=== PATIENT | male | born 1935 | race Caucasian/White ===

== ENCOUNTER → 2016-05-05 | Outpatient (CLI) | payer OTHER ==
--- NOTE | 2016-05-05 17:05 | DX ---
Lumbar Spine, Two Views 1500 hours Indication: Pain. Evaluate sacroiliac joints. Comparison: None Technique: Upright AP and lateral views. Findings: The lumbar spine has minimal dextrocurvature apex at L2 and 3 mm anterolisthesis of L3 on L4. No compression fracture or pars defect. Moderate to severe degenerative disk disease and facet ar thropathy are present at L4-L5 and L5-S1. The remainder the disk heights are relatively well preserve d. A sclerotic density overlying the iliac wings on the lateral view is not included in the field-of- view on the AP view and may represent a bone island in one of the iliac wings. Amorphous sclerosis is present along the iliac side of bilateral sacroiliac joints. Minimal productive arthropathy is prese nt at the pubic symphysis. Impression: 1. Moderate to severe degenerative disk and facet arthropathy at L4-L5 and L5-S1 levels. 2. No compression fracture. 3. Possible sacroiliitis. If erosive sacroiliitis is suspected, recommend dedicated sacroiliac views to optimally evaluate the joints.
== END ==
LOC: FIMAGING 14:55
PROVIDERS: ATTEND Family Medicine
DX: M51.36 Other intervertebral disc degeneration, lumbar region (principal); M51.37 Other intervertebral disc degeneration, lumbosacral region; M46.96 Unspecified inflammatory spondylopathy, lumbar region; M46.97 Unspecified inflammatory spondylopathy, lumbosacral region

== ENCOUNTER 2018-06-01 09:19 | Inpatient (IN) | payer OTHER, MEDICARE ==
--- NOTE | 2018-05-31 17:23 | GHP ---
[f rep st] PREOP HISTORY AND PHYSICAL DATE OF ADMISSION: 06/01/2018 ADMISSION DIAGNOSIS: BPH with urinary retention. HISTORY OF PRESENT ILLNESS: This is an 82-year-old gentleman who has been referred by Dr. Danny lombardo of urinary retention, and he has had a quality of life score to being mostly satisfied initially , but he had an AUA severity score of 25 as of 06/02/2017. He had multiple episodes of urinary reten tion, with catheter in and out and has been able to void. He had a PSA in the past of 6.1. He had a previous benign biopsy in 2004 and prostate volume as of 07/15/2017, was 95 g. I reviewed that ultr asound. It shows he had an intravesical lobe of the prostate with obstruction, and he has some bladd er incrustations or stone noted in the parenchyma of the prostate. At the present time, he has elect ed to undergo TUR of the prostate, and he is admitted for the above procedure. MEDICATIONS: On admission Asacol, folic acid. ALLERGIES: Penicillin. PAST SURGICAL HISTORY: Hernia, knee, cataract surgery. PAST MEDICAL HISTORY: Positive for rheumatoid arthritis, Crohn disease. REVIEW OF SYSTEMS: Negative cardiac, respiratory, GI, and endocrine. PHYSICAL EXAMINATION: VITAL SIGNS: Stable. CHEST: Clear. HEART: Regular rate and rhythm. ABDOM EN: Normal. No organomegaly, rebound, or guarding. LOWER EXTREMITIES: Normal at the present time. ASSESSMENT AND PLAN: He has had significant urinary obstruction, and cystoscopy previously had noted +4 trabeculation of the bladder and a large intravesical lobe of the prostate. At the present time, he is admitted for the transurethral resection of prostate. He did have an opportunity to discuss t he indications and complications associated with this procedure, and he is admitted for the transuret hral resection of prostate. /[id number]/MODL
--- NOTE | 2018-06-01 07:42 | PDHPUP ---
History & Physical Update H&P update statement: This history and physical update is based on an assessment of the patient which was completed after admission or registration (within 24 hours), but prior to the surgery/procedure. H&P update: H&P reviewed & patient examined, no change in patient's condition since H&P completed
[2018-06-01] MEDS ORDERED: ceFAZolin 2 GM/DEXTROSE 100 ML IV ONE (12:30)
[2018-06-01] MEDS ORDERED: LR 1,000 ML IV ONE (12:30)
[2018-06-01] MEDS ORDERED: MIDAZOLAM 2 MG/2 ML VIAL IVP ONE (13:19)
--- NOTE | 2018-06-01 13:19 | PDANEPAE ---
ANE History of Present Illness here for TURP ANE Past Medical History - Cardiovascular History Hx Hypertension: No Hx Arrhythmias: No Hx Chest Pain: No Hx Coronary Artery / Peripheral Vascular Disease: No Hx CHF / Valvular Disease: No Hx Palpitations: No - Pulmonary History Hx COPD: No Hx Asthma/Reactive Airway Disease: No Hx Recent Upper Respiratory Infection: No Hx Oxygen in Use at Home: No Hx Sleep Apnea: No Sleep Apnea Screening Result - Last Documented: Negative - Neurologic History Hx Cerebrovascular Accident: No Hx Seizures: No Hx Dementia: No - Endocrine History Hx Diabetes: No - Renal History Hx Renal Disorders: No - Liver History Hx Hepatic Disorders: Yes Hepatic History Comment: primary sclerosing cholangitis - Neurological & Psychiatric Hx Hx Neurological and Psychiatric Disorders: No Neurological / Psychiatric History Comment: clinical depression early in life, nothing recently - Cancer History Hx Cancer: No - Congenital Disorder History Hx Congenital Disorders: Yes Congenital History Comment: depression - GI History Hx Gastrointestinal Disorders: Yes Gastrointestinal History Comment: crohns last episode 1994 - Other Health History Other Health History: none - Chronic Pain History Chronic Pain: No - Surgical History Prior Surgeries: colonoscopy. none in last 5 yrs. hernia 2011. knee scope 2008 ANE Review of Systems Review of systems is: negative Review of Systems: - Exercise capacity Exercise capacity: >=4 METS METS (RN): 4 METS ANE Patient History - Allergies Allergies/Adverse Reactions: Penicillins Allergy (Verified 05/26/18 17:17) Rash - Home Medications Home Medications: C/E/Zn/Cu/OM3/DHA/EPA/LUT/ZEAX [Preservision Areds 2 Softgel] 1 each PO BIDMEAL 05/12/15 [Last Taken 1 Week Ago ~05/25/18] Folic Acid [Folic Acid 1 MG (*)] 1 mg PO DAILY 05/12/15 [Last Taken 06/01/18] Mesalamine [Apriso 0.375 gm] 1.5 gm PO DAILY 05/12/15 [Last Taken 05/31/18] Ibuprofen [Motrin (*)] 200 mg PO DAILY PRN 05/18/18 [Last Taken 1 Week Ago ~] - NPO status NPO Status: no food or drink >8 hours NPO Since - Liquids (Date): 06/01/18 NPO Since - Liquids (Time): 10:30 NPO Since - Solids (Date): 05/31/18 NPO Since - Solids (Time): 22:00 - Smoking Hx Smoking Status: Never smoked - Family Anes Hx Family Hx Anesthesia Complications: none ANE Labs/Vital Signs - Vital Signs Blood Pressure: 135/84 Heart Rate: 62 Respiratory Rate: 16 O2 Sat (%): 98 Height: 175.26 cm Weight: 70.307 kg ANE Physical Exam - Airway Neck exam: FROM Mallampati Score: Class 1 - Pulmonary Pulmonary: no respiratory distress - Cardiovascular Cardiovascular: regular rate and rhythym - ASA Status ASA Status: II ANE Anesthesia Plan Anesthesia Plan: GA w LMA
[2018-06-01] MEDS ORDERED: fentaNYL 100 MCG/2 ML INJ ONE ×2 (13:27→14:41)
[2018-06-01] MEDS ORDERED: PROPOFOL/EMULSION 500 MG/50 ML BOTTLE IV ONE (13:28)
[2018-06-01] MEDS ORDERED: LIDOCAINE 2% JELLY 20 ML (UROJECT) ONE (14:39)
--- NOTE | 2018-06-01 14:51 | POSTOPPROG ---
Post Op Note Date of Operation: 06/01/18 (dictated ) Surgeon: León Weston Anesthesiologist: jim Anesthesia: GET(General Endotracheal) Pre-op Diagnosis: BPH Procedure: turp Inf/Abcess present in the surg proc area at time of surgery?: No EBL: 50-100 Drains: Other Specimen(s): specimen sent
[2018-06-01] MEDS ORDERED: HYDROCODONE/APAP 5/325 TAB PO PRN (14:52)
[2018-06-01] MEDS ORDERED: ONDANSETRON DISINTEGRATING 4 MG TAB PO PRN (14:56)
[2018-06-01] MEDS ORDERED: ZOLPIDEM TARTRATE 5 MG TAB PO PRN (14:56)
[2018-06-01] MEDS ORDERED: oxyCODONE IR 5 MG TAB PO PRN (14:56)
[2018-06-01] MEDS ORDERED: ONDANSETRON 4 MG/2 ML VIAL IVP PRN (14:56)
[2018-06-01] MEDS ORDERED: ACETAMINOPHEN 325 MG TAB PO PRN (14:56)
[2018-06-01] MEDS ORDERED: D5W LR 1,000 ML IV SCH (15:00)
--- NOTE | 2018-06-01 15:03 | POSTANESTH ---
Post Anesthetic Evaluation Cardiovascular Status: Normal, Stable Respiratory Status: Normal, Stable Level of Consciousness/Mental Status: Can Participate in Eval Pain Control: Adequate, Prn Tx Ordered Nausea/Vomiting Control: Adequate, Prn Tx Ordered Complications Possibly Related to Anesthesia: None Noted
--- NOTE | 2018-06-01 15:12 | GOP ---
[f rep st] OPERATIVE REPORT DATE OF OPERATION: 06/01/2018 SURGEON: León Weston MD ANESTHESIA: General. ANESTHESIOLOGIST: Pablo Lane MD PREOPERATIVE DIAGNOSIS: Benign prostatic hypertrophy with urinary obstruction and retention. POSTOPERATIVE DIAGNOSIS: Benign prostatic hypertrophy with urinary obstruction and retention. PROCEDURE PERFORMED: Transurethral resection of the prostate. FINDINGS: SPECIMENS: Sent to pathology. DESCRIPTION OF PROCEDURE: After undergoing general anesthesia, prepped and draped in normal sterile fashion in dorsal lithotomy position and appropriate time-out, the scope was passed under direct visi on. He had a large intravesical lobe of the prostate and +4 trabeculation of the bladder. No tumors identified in the bladder. At that point, I took down the intravesical lobe and, of interest, with every sweep of the loop he had a large caliber artery that would bleed, so we cauterized those. I re sected, and basically I did a channel TUR of the prostate because of the hypervascularity, and some o f the arteries were of a nature that even electrocautery with the loop would not stop their bleeding, so I used a button to stop the bleeding. At the end of the procedure, Ellik 'd his bladder free of all chips and clots. Visualization revealed no residual chips or clots. Ureteral orifices were pres erved, verumontanum preserved. He had a channel TUR and could visualize no significant hemorrhage or bleeding at that time. The Uro-jet placed in his urethra, Kolb catheter passed over a Mandarin kristi de into the bladder, and the balloon was inflated to greater than 100 mL. Traction placed, irrigated clear. I will inform him and his postoperatively that this may not be as effective as I would like, and may need to go back and do a 2nd procedure. But, at the present time, with the vascularity of his prostate and the arterial supply to it, felt that it may be more harmful than good at this po int to do a more extensive TUR of the prostate. COMPLICATIONS: None. I will contact his to give her an update and then he will be in recovery room shortly. /[id number]/MODL
[2018-06-01] MEDS: OPIUM/BELLADONNA ALKALO SUPP PR PRN ×2 (19:28→21:50)
[2018-06-01] MEDS: IBUPROFEN 600 MG TAB PO PRN (21:50)
[2018-06-02] MEDS: IBUPROFEN 600 MG TAB PO PRN ×2 (04:33→22:27)
[2018-06-02 05:08] LABS: PLATELET COUNT 195 10^3/uL (150-400)
--- NOTE | 2018-06-02 07:01 | SOAPPROG ---
SOAP Progress Note Assessment/Plan: Assessment: BPH loc w urin obs/LUTS Acute POD #1 TURP, doing well, plan for additional night stay Plan: dc barillas in AM, plan DC in am 06/02/18 13:12 Subjective: doing better with less in the barillas balloon Objective: Vital Signs Temp Pulse Resp BP Pulse Ox 36.7 C 79 14 120/68 96 06/02/18 04:27 06/02/18 04:27 06/02/18 04:27 06/02/18 04:27 06/02/18 04:27 Laboratory Results 06/02/18 04:10 06/02/18 04:10 06/01/18 06/02/18 06/03/18 05:59 05:59 05:59 Intake Total 2804 Output Total 1269 Balance 1535 Physical Exam - Physical Exam General Appearance: alert Respiratory: No respiratory distress Cardiac/Chest: regular rate, rhythm Abdomen: soft Male Genitalia: other (normal with barillas) Back: No CVA tenderness Extremities: No calf tenderness, No Comfort's sign Neuro/Psych: alert, oriented x 3 ICD10 Worksheet Patient Problems: Problems Problem Status Onset BPH loc w urin obs/LUTS Acute Chest pain of uncertain etiology Acute - ICD10 Problem Qualifiers (1) BPH loc w urin obs/LUTS
--- NOTE | 2018-06-02 10:40 | ASMTCMCOM ---
CM Note CM Note Notes: Chart Review for Discharge Planning: Patient is a 82 year old male with a history of benign prostatic hypertrophy with urinary obstruction and retention status post Transurethral resection of the prostate. PT/OT eval ordered, pending recommendations. CM to follow. Discharge Plan: Likely home independent. Date Signed: 06/02/2018 10:39 AM Electronically Signed By:Anabell Turcios
[2018-06-02] MEDS: OPIUM/BELLADONNA ALKALO SUPP PR PRN (22:29)
[2018-06-03 08:04] VITALS: BP 144/69
--- NOTE | 2018-06-03 09:12 | SOAPPROG ---
SOAP Progress Note Assessment/Plan: Assessment: BPH loc w urin obs/LUTS Acute POD #2 TURP, doing well Plan: dc barillas in AM, plan DC home 06/03/18 10:08 Subjective: doing well, ready for DC Objective: Vital Signs Temp Pulse Resp BP Pulse Ox 36.8 C 83 16 144/69 H 93 06/03/18 04:00 06/03/18 08:03 06/03/18 08:03 06/03/18 08:03 06/03/18 08:03 Laboratory Results 06/02/18 04:10 06/02/18 04:10 06/02/18 06/03/18 06/04/18 05:59 05:59 05:59 Intake Total 2804 1000 Output Total 1269 5100 75 Balance 1535 -4100 -75 Physical Exam - Physical Exam General Appearance: alert Respiratory: No respiratory distress Cardiac/Chest: regular rate, rhythm Abdomen: soft Back: No CVA tenderness Extremities: No calf tenderness, No Comfort's sign Neuro/Psych: alert, oriented x 3 ICD10 Worksheet Patient Problems: Problems Problem Status Onset BPH loc w urin obs/LUTS Acute Chest pain of uncertain etiology Acute - ICD10 Problem Qualifiers (1) BPH loc w urin obs/LUTS
--- NOTE | 2018-06-03 10:21 | ASDISCHSUM ---
Discharge Information Plan Status:Home with No Needs Medically Cleared to Leave: Discharge Date: CM D/C Disposition:Home, Routine, Self-Care ADT D/C Disposition:Home, Routine, Self-Care Projected Discharge Date: Transportation at D/C:Family Discharge Delay Reason: Follow-Up Date: Discharge Slot: Final Diagnosis: Placement Information Patient Contact Information Contact Name:XUAN Relationship: Address:[address] Work Phone: City:[place] Phone: [facility]/Zip Code:[place] [address] Email: Financial Information Financial Class:Medicare Primary Plan Desc:MEDICARE OUTPATIENT Primary Plan Number:[id number] Secondary Plan Desc:[employer]/MDR SUPPLEMENT Secondary Plan Number:[id number] Assessment Information LACE LACE Length of stay for Answers: Less than 1 day current admission Acuity / Level of Answers: Yes Care: Did the patient have an inpatient admission? # of Emergency department Answers: 0 visits in the last 6 months Social determinants Answers: Mental health diagnosis (anxiety, depression, pers onality disorders, etc.) Score: 6 Date Signed: 06/03/2018 10:19 AM Electronically Signed By:Brittney Owen [facility] CM Progress Note CM Note CM Note Notes: Chart Review for Discharge Planning: Patient is a 82 year old male with a history of benign prostatic hypertrophy with urinary obstruction and retention status post Transurethral resection of the prostate. PT/OT eval ordered, pending recommendations. CM to follow. Discharge Plan: Likely home independent. Date Signed: 06/02/2018 10:39 AM Electronically Signed By:Anabell Turcios Intervention Information Intervention Type:*HACKETT-Signed Date of Service:06/02/2018 10:17 AM Patient Type:Observation Staff Member:Neema Urrutia Hours: Discipline: Severity: Comment:
--- NOTE | 2018-06-03 10:28 | PDMN ---
Medical Necessity Medical necessity: Change to IP, as of 06/02/18, per & MCG [id number]; los >2 mn for ongoing management of urinary obstruction & retention s/p TURP POD #1; requiring further monitoring, 3-way cath care w/continuous bladder irrigation & bladder scan
== END 2018-06-03 10:30 | disposition home or self-care (01) | DRG 713 ==
LOC: INTOOBSV 12:15 → F1N 12:15 → OBSVTOIN 06-02 17:37
PROVIDERS: ADMIT Specialist; ATTEND Specialist
PROC: 0VT08ZZ Resection of Prostate, Via Natural or Artificial Opening Endoscopic (ICD-10-PCS; principal; 2018-06-01 13:45)
DX: N40.1 Benign prostatic hyperplasia with lower urinary tract symptoms (principal); N13.8 Other obstructive and reflux uropathy; R33.8 Other retention of urine; M06.9 Rheumatoid arthritis, unspecified
CPT/HCPCS: J0690; J2250; J2704; J3010